=== PATIENT | female | born 1950 | race Hispanic/Latino ===

== ENCOUNTER → 2024-06-17 | Outpatient (CLI) | payer OTHER ==
--- NOTE | 2024-06-17 11:37 | HMCIMG ---
ULTRASOUND VENOUS DOPPLER RIGHT LOWER EXTREMITY INDICATION: Pain and swelling. TECHNIQUE: Routine grayscale and color Doppler ultrasound of the right lower extremity veins performed. COMPARISON: None. FINDINGS: The demonstrated veins of the right lower extremity including the common femoral vein, femoral vein, and popliteal vein are associated with normal compressibility, augmentation, and flow. Normal respiratory variation was identified. No evidence for echogenic intraluminal thrombus. Small suprapatellar bursal effusion. IMPRESSION: Small suprapatellar bursal effusion without evidence for deep venous thrombosis.
== END | disposition home or self-care (01) ==
LOC: RAH 06:58
PROVIDERS: ATTEND Family Medicine
DX: M25.461 Effusion, right knee (principal); M79.661 Pain in right lower leg
CPT/HCPCS: 93971